=== PATIENT | male | born 1975 | race Caucasian/White ===

== ENCOUNTER 2017-01-19 14:06 | Emergency (ER) | payer OTHER ==
--- NOTE | 2017-01-19 14:17 | EDPHY ---
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 ED Course/Re-evaluation: CHIEF COMPLAINT: Fever, sore throat HISTORY OF PRESENT ILLNESS: The patient is a 41 y/o male, with a history of total splenectomy, arriving from urgent care for sepsis rule out. He reports 5 days of worsening fever, sore throat, nonproductive cough, sinus pressure, and now right ear pain. He states his fever has consistently been between 101-102F since symptom onset. His symptoms have not improved with [id number] cold medications. He denies chest pain, shortness of breath, abdominal pain, vomiting , or diarrhea. He is not up-to-date on Pneumovax. REVIEW OF SYSTEMS: A 10 point review of systems was performed and is negative with the exception of the elements mentioned in the history of present illness. PHYSICAL EXAM: HR, BP, O2 Sat, RR. Temp noted General Appearance: Alert, well hydrated, appropriate, and uncomfortable- appearing. Head: Atraumatic without scalp tenderness or obvious injury. No tenderness over sinuses. Eyes: Pupils equal, round, reactive to light and accommodation, EOMI, no trauma , injected conjunctiva and epiphora bilaterally. Ears: Left TM bulging without erythema; Right TM erythematous, bulging, with vesicles. No perforation, normal landmarks Nose: Atraumatic, no rhinorrhea, clear. Throat: Mild erythema without exudate, no lesions, normal tonsils, mucus membranes moist. Post-nasal drip Neck: Supple, nontender, no lymphadenopathy. Respiratory: No retractions, no distress, no wheezes, and no accessory muscle use. Transmitted upper airway noises. Cardiovascular: Tachycardic regular rate and rhythm, no murmurs, rubs, or gallops. Good capillary refill all extremities. Gastrointestinal: Abdomen is soft, nontender, non-distended, no masses, no rebound, no guarding, no peritoneal signs. Musculoskeletal: Normal active ROM of all extremities, atraumatic. Neurological: Alert, appropriate, and interactive. Nonfocal neuro exam. Skin: No rashes, good turgor, no nodules on palpation. Past medical history: Asplenic; vaccinations are not up-to-date Past surgical history: Splenectomy secondary to trauma Family history: noncontributory Social history: Family at bedside. PCP: Dr. Ferrari. DIAGNOSTICS/PROCEDURES/CRITICAL CARE TIME: Chest x-ray. I viewed the images myself on the PACS system. DIFFERENTIAL DIAGNOSIS: The differential diagnosis for the patient's fever included but was not limited to sinusitis, pneumonia, otitis media, urinary tract infection, viral syndrome, meningitis, and sepsis. MEDICAL DECISION MAKING: This is an asplenic 41 y/o male who presents with a 5-day history of fever, sore throat, and more recently right ear pain. His vaccinations are not up-to- date. On exam, he has mild pharyngeal erythema with post-nasal drip and bulging , erythematous left TM with vesicles. His lungs are largely clear with some transmitted upper airway noises. His symptoms are consistent with bacterial infection, possibly mycoplasma pneumoniae due to the TM vesicles. Plan for chest x-ray, IV, labs including sepsis labs, 1L IV NS, and 500mg IV azithromycin. Lactate is normal. Chest x-ray is negative. Further septic workup not indicated. I discussed findings with the patient and answered all his questions. He will be discharged home with a script for azithromycin and referral to PCP for follow up. He is comfortable with this plan. - Data Points Laboratory Results: Laboratory Results 01/19/17 14:20 01/19/17 14:20 01/19/17 01/19/17 01/19/17 14:20 14:20 14:20 WBC 11.45 10^3/uL H 10^3/uL (3.80-9.50) RBC 4.81 10^6/uL 10^6/uL (4.40-6.38) Hgb 14.8 g/dL g/dL (13.7-17.5) Hct 42.5 % % (40.0-51.0) MCV 88.4 fL fL (81.5-99.8) MCH 30.8 pg pg (27.9-34.1) MCHC 34.8 g/dL g/dL (32.4-36.7) RDW 13.6 % % (11.5-15.2) Plt Count 234 10^3/uL 10^3/uL (150-400) MPV 9.3 fL fL (8.7-11.7) Neut % (Auto) 66.8 % % (39.3-74.2) Lymph % (Auto) 20.6 % % (15.0-45.0) [place] % (Auto) 12.1 % % (4.5-13.0) Eos % (Auto) 0.0 % L % (0.6-7.6) Baso % (Auto) 0.2 % L % (0.3-1.7) Nucleat RBC Rel Count 0.0 % % (0.0-0.2) Absolute Neuts (auto) 7.65 10^3/uL H 10^3/uL (1.70-6.50) Absolute Lymphs (auto) 2.36 10^3/uL 10^3/uL (1.00-3.00) Absolute Monos (auto) 1.38 10^3/uL H 10^3/uL (0.30-0.80) Absolute Eos (auto) 0.00 10^3/uL L 10^3/uL (0.03-0.40) Absolute Basos (auto) 0.02 10^3/uL 10^3/uL (0.02-0.10) Absolute Nucleated RBC 0.00 10^3/uL 10^3/uL (0-0.01) Immature Gran % 0.3 % % (0.0-1.1) Immature Gran # 0.04 10^3/uL 10^3/uL (0.00-0.10) PT 12.9 SEC SEC (12.0-15.0) INR 0.98 (0.83-1.16) APTT 37.2 SEC SEC (23.0-38.0) VBG Lactic Acid Sodium 130 mEq/L L mEq/L (134-144) Potassium 4.2 mEq/L mEq/L (3.5-5.2) Chloride 97 mEq/L mEq/L (97-110) Carbon Dioxide 24 mEq/l mEq/l (22-31) Anion Gap 9 mEq/L mEq/L (8-16) BUN 9 mg/dL mg/dL (7-23) Creatinine 0.7 mg/dL mg/dL (0.7-1.3) Estimated GFR > 60 Glucose 119 mg/dL H mg/dL (70-100) Calcium 8.5 mg/dL mg/dL (8.5-10.4) Total Bilirubin 0.5 mg/dL mg/dL (0.1-1.4) 01/19/17 14:20 WBC RBC Hgb Hct MCV MCH MCHC RDW Plt Count MPV Neut % (Auto) Lymph % (Auto) [place] % (Auto) Eos % (Auto) Baso % (Auto) Nucleat RBC Rel Count Absolute Neuts (auto) Absolute Lymphs (auto) Absolute Monos (auto) Absolute Eos (auto) Absolute Basos (auto) Absolute Nucleated RBC Immature Gran % Immature Gran # PT INR APTT VBG Lactic Acid 0.9 mmol/L mmol/L (0.7-2.1) Sodium Potassium Chloride Carbon Dioxide Anion Gap BUN Creatinine Estimated GFR Glucose Calcium Total Bilirubin Departure - Departure Disposition: Home, Routine, Self-Care Clinical Impression: Mycoplasma infection Sinusitis Qualifiers: Sinusitis location: other Chronicity: acute Recurrence: non-recurrent Qualified Code(s): J01.80 - Other acute sinusitis Otitis media Qualifiers: Otitis media type: suppurative Laterality: right Chronicity: acute Recurrence: not specified as recurrent Spontaneous tympanic membrane rupture: without spontaneous rupture Qualified Code(s): H66.001 - Acute suppurative otitis media without spontaneous rupture of ear drum, right ear Condition: Good Instructions: Azithromycin (By mouth), Sinusitis (ED), Otitis Media (ED) Additional Instructions: 1. Take azithromycin as prescribed. Be sure to complete the entire prescription even if symptoms have resolved. 2. Increase fluid intake. 3. Use ibuprofen and Tylenol as needed for pain and fever. 4. Follow up with your primary care provider for symptoms unimproved over the next week. Referrals: Sebastien Ferrari MD [Primary Care Provider] - As per Instructions Justino Mccormack MD [Medical Doctor] - As per Instructions Prescriptions: AZITHROMYCIN [Z-PACK] 250 mg PO DAILY #1 packet Report Scribed for: Kee Booth Report Scribed by: Alona Bull Date of Report: 01/19/17 Time of Report: 14:32
[2017-01-19] MEDS ORDERED: AZITHROMYCIN IV 500 MG in D5W 250 ML IV ONE (14:28)
[2017-01-19] MEDS ORDERED: NS 1,000 ML IV ONE (14:40)
[2017-01-19 14:42] LABS: % IMMATURE GRANULYOCYTES 0.3 % (0.0-1.1); ABSOLUTE IMMATURE GRANULOCYTES 0.04 10^3/uL (0.00-0.10); ADD DIFF? NO; ADD MORPH? NO; ADD SCAN? NO; ATYPICAL LYMPHOCYTE FLAG 40 (0-99); FRAGMENT RBC FLAG 0 (0-99); HEMATOCRIT 42.5 % (40.0-51.0); HEMOGLOBIN 14.8 g/dL (13.7-17.5); LEFT SHIFT FLG 10 (0-99); LIPEMIA HEMOLYSIS FLAG 90 (0-99); MEAN CELL HEMOGLOBIN 30.8 pg (27.9-34.1); MEAN CELL HEMOGLOBIN CONCENTR. 34.8 g/dL (32.4-36.7); MEAN CELL VOLUME 88.4 fL (81.5-99.8); MEAN PLATELET VOLUME 9.3 fL (8.7-11.7); PLATELET CLUMPS FLAG 40 (0-99); PLATELET COUNT 234 10^3/uL (150-400); RED BLOOD CELL COUNT 4.81 10^6/uL (4.40-6.38); RED CELL DISTRIBUTION WIDTH 13.6 % (11.5-15.2)
[2017-01-19 14:59] LABS: INR 0.98 (0.83-1.16); PROTIME(PATIENT) 12.9 SEC (12.0-15.0)
[2017-01-19 15:00] LABS: APTT 37.2 SEC (23.0-38.0)
[2017-01-19 15:07] LABS: ANION GAP 9 mEq/L (8-16); BILIRUBIN,TOTAL 0.5 mg/dL (0.1-1.4); CALCIUM 8.5 mg/dL (8.5-10.4); CARBON DIOXIDE 24 mEq/l (22-31); CHLORIDE 97 mEq/L (97-110); CREATININE 0.7 mg/dL (0.7-1.3); GLOMERULAR FILTRATION RATE > 60; GLUCOSE 119 mg/dL (70-100); POTASSIUM 4.2 mEq/L (3.5-5.2); SODIUM 130 mEq/L (134-144)
[2017-01-19 16:21] VITALS: BP 122/83; PULSE 93; RESP 20; TEMP 99.1; O2SAT 97
== END 2017-01-19 16:27 | disposition home or self-care (01) ==
DX: J01.80 Other acute sinusitis (principal); H66.001 Acute suppurative otitis media without spontaneous rupture of ear drum, right ear; A49.3 Mycoplasma infection, unspecified site
CPT/HCPCS: 96365; J0456

== ENCOUNTER → 2018-07-31 | Outpatient (CLI) | payer OTHER | LOC: FIMAGING 11:27 | PROVIDERS: ATTEND Family Medicine | DX: M12.88 Other specific arthropathies, not elsewhere classified, other specified site (principal) ==

== ENCOUNTER → 2018-11-07 | Outpatient (CLI) | payer OTHER | LOC: FLAB 09:43 | PROVIDERS: ATTEND Internal Medicine | DX: M54.6 Pain in thoracic spine (principal) ==